=== PATIENT | female | born 1985 | race Caucasian/White ===

== ENCOUNTER 2016-10-14 13:02 | Emergency (ER) | payer OTHER ==
[~2016-10-14] VITALS: Ht 160 cm; Wt 113.4 kg
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
[~2016-10-14 13:02] MED LIST: AMOXICILLIN500 M1 PO; CIPRO PO; FLOMAX0.4 M1 PO; IBUPROFEN800 MG PO; LORTAB 5/500 TA1 TA2 PO; LOTRIMIN AF12 GM TP; MACROBID 100 M100 MG PO; PEN-VEE K PO; PRENATAL1 TA1 PO; TYLENOL #3 PO; TYLOX 5-500 CA1 EACH PO
[2016-10-14 14:02] LABS: BASOPHIL% 0.4 % (0-2.5); EOSINOPHIL# 0.1 X10e3 (0-0.7); EOSINOPHIL% 1.2 % (0.0-7.0); HEMATOCRIT 42.7 % (35.0-45.0); HEMOGLOBIN 14.5 gm/dL (12.0-16.0); LYMPHOCYTE# 1.9 X10e3 (1.0-3.5); LYMPHOCYTE% 18.8 % (17.0-45.0); MEAN CELL VOLUME 87.2 FL (83-96); MEAN CORPUSCULAR HEMOGLOBIN 29.6 PG (28-34); MEAN CORPUSCULAR HGB CONC 33.9 g/dL (30-36); MEAN PLATELET VOLUME 8.9 FL (6.5-11.5); MONOCYTE# 0.4 X10e3 (0-1.0); MONOCYTE% 4.3 % (3.0-12.0); NEUTROPHIL# 7.5 X10e3 (1.5-7.1); NEUTROPHIL% 75.3 % (40-75); PLATELET COUNT 241 X10e3 (140-420); RED CELL DISTRIBUTION WIDTH 13.9 % (11.0-15.5); WHITE BLOOD COUNT 9.9 X10e3 (4.0-10.5)
[2016-10-14 14:04] LABS: DIFF IND NO
[2016-10-14 14:44] LABS: ALBUMIN SERUM 4.3 g/dL (3.5-5.0); BILIRUBIN, DIRECT 0.1 mg/dL (0.0-0.2); BILIRUBIN,INDIRECT 0.3 mg/dL (0.0-0.9); BILIRUBIN,TOTAL 0.4 mg/dL (0.2-2.0); BUN/CREATININE RATIO 14.44; CREATININE SERUM 0.9 mg/dL (0.6-1.4); GLOM FILT RATE Estimated 85.3 mL/min (>60); POTASSIUM 3.9 mmol/L (3.5-5.1); PROTEIN TOTAL SERUM 7.6 g/dL (6.0-8.3)
[2016-10-14 17:09] LABS: URINE SOURCE CLEAN CATCH
[2016-10-14 17:14] LABS: URINE APPEARANCE CLEAR; URINE BILIRUBIN NEG (NEG); URINE BLOOD NEG (NEG); URINE COLOR YELLOW; URINE GLUCOSE NEG (NEG); URINE KETONE NEG (NEG); URINE NITRATE NEG (NEG); URINE PROTEIN NEG (NEG); URINE UROBILINOGEN 0.2 MG/DL (NEG)
[2016-10-14 17:26] LABS: URINE LEUKOCYTE ESTERASE 2+ (NEG); URINE PH 6.5 (5-8)
[2016-10-14 17:27] LABS: CULTURE INDICATED? NO
== END 2016-10-14 17:01 | disposition home or self-care (01) ==
LOC: CED 13:02 → CFTX 13:02
PROVIDERS: Physician Assistant
DX: S60.222A Contusion of left hand, initial encounter (principal); W22.8XXA Striking against or struck by other objects, initial encounter; Y92.009 Unspecified place in unspecified non-institutional (private) residence as the place of occurrence of the external cause; Z23 Encounter for immunization
CPT/HCPCS: 29125; 73130; 74177; 80048; 80076; 81003; 84703; 85025; 90471; 90715; 96374; 99284; J1885; Q9967